=== PATIENT | female | born 1990 | race Caucasian/White ===

== ENCOUNTER 2017-05-20 06:35 | Inpatient (IN) | END 2017-05-22 15:45 | disposition home or self-care (01) | DRG 777 ==

== ENCOUNTER 2017-07-27 06:30 | Emergency (ER) | END 2017-07-27 08:05 | disposition home or self-care (01) ==

== ENCOUNTER 2017-12-28 20:56 | Emergency (ER) | END 2017-12-29 01:31 | disposition home or self-care (01) ==

== ENCOUNTER 2018-09-04 17:42 | Emergency (ER) | payer OTHER ==
[~2018-09-04] VITALS: Wt 84.8 kg
[~2018-09-04 17:42] MED LIST: ACET325T33 PO; CIPR500T4 PO; IBUP-1542 PO; IBUP800T48 PO; PREN1TAB49
[2018-09-04] MEDS ORDERED: ACETAMINOPHEN 325 MG TAB PO STA (19:45)
--- NOTE | 2018-09-04 20:11 | ERD ---
ER Documentation Chief Complaint Chief Complaint l. pelvic pain, hasn't had period in 1 mo HPI 27-year-old G2, P2 female with past medical history of PCOS, right-sided ectopic May 2017 requiring emergent surgical intervention who presents with 1 month complaint of worsening pelvic pain. Describes sharp pain localized to the left iliac region. LMP per patient was early June. Has taken several urine test which have all come back negative. She is sexually active with one partner, admits to not always using condoms for sexual intercourse. She otherwise denies vaginal bleeding, fevers, chills, nausea, vomiting, radiation of abdominal pain. ROS All systems reviewed and are negative except as per history of present illness. Medications Home Meds Active Scripts Acetaminophen* (Tylophen*) 500 Mg Capsule, 1 CAP PO Q6H PRN for PAIN AND OR ELEVATED TEMP, #20 CAP Prov:JESSE MALDONADO PA-C 09/04/18 Ibuprofen* (Motrin*) 600 Mg Tab, 600 MG PO Q6, #30 TAB Prov:CASI RUTLEDGE PA-C 12/29/17 Ciprofloxacin Hcl* (Ciprofloxacin Hcl*) 500 Mg Tablet, 500 MG PO BID for 7 Days, TAB Prov:CASI RUTLEDGE PA-C 12/29/17 Ibuprofen* (Motrin*) 600 Mg Tab, 600 MG PO Q6, #30 TAB Prov:OTTO LYONS PA-C 07/27/17 Acetaminophen* (Tylenol*) 325 Mg Tablet, 2 TAB PO Q6 PRN for PAIN AND OR ELEVATED TEMP, #20 TAB Prov:OTTO LYONS PA-C 07/27/17 Ibuprofen* (Motrin*) 800 Mg Tab, 800 MG PO Q6 PRN for PAIN LEVEL 4-7, #30 TAB Prov:MARYANA CM MD 05/22/17 Reported Medications Vits W-Ca,Fe,Fa(<1MG) () 1 Tab Tablet 11/19/09 Allergies Allergies: Coded Allergies: No Known Drug Allergy (Verified Allergy, Unknown, 09/04/18) PMhx/Soc History of Surgery: Yes (c-sectionsx2, ectopic ) Anesthesia Reaction: No Hx Neurological Disorder: No Hx Respiratory Disorders: No Hx Cardiac Disorders: No Hx Psychiatric Problems: No Hx Miscellaneous Medical Probl: No Hx Alcohol Use: Yes (occasionally) Hx Substance Use: No Hx Tobacco Use: Yes Smoking Status: Never smoker FmHx Family History: No diabetes, No coronary disease, No other Physical Exam Vitals Vital Signs Date Temp Pulse Resp B/P (MAP) Pulse Ox O2 O2 Flow FiO2 Time Delivery Rate 09/04/18 98.7 74 20 124/70 99 Room Air 22:05 (88) 09/04/18 98.9 92 20 127/70 98 17:51 (89) Physical Exam I have reviewed the triage vital signs. Const: Well nourished, well developed, appears stated age Eyes: PERRL, no conjunctival injection HENT: NCAT, Neck supple without meningismus CV: RRR, Warm, well-perfused extremities RESP: CTAB, Unlabored respiratory effort GI: soft,tender to palpation to L iliac, non-distended, no masses MSK: No gross deformities appreciated Skin: Warm, dry. No rashes Neuro: grossly non focal Psych: Appropriate mood and affect. Results 24 hrs Laboratory Tests Test 09/04/18 19:55 09/04/18 20:00 POC Beta HCG, Qualitative NEGATIVE Urine Color YELLOW Urine Clarity CLEAR Urine pH 8.0 Urine Specific [place] 1.021 Urine Ketones NEGATIVE mg/dL Urine Nitrite NEGATIVE mg/dL Urine Bilirubin NEGATIVE mg/dL Urine Urobilinogen NEGATIVE mg/dL Urine Leukocyte Esterase NEGATIVE Sami/ul Urine Hemoglobin NEGATIVE mg/dL Urine Glucose NEGATIVE mg/dL Urine Total Protein NEGATIVE mg/dl Current Medications Medications Dose Sig/Ksenia Start Time Status Last (Trade) Ordered Route PRN Stop Time Admin Dose Reason Admin 650 mg ONCE STAT 09/04/18 DC 09/04/18 Acetaminophen PO 19:45 19:59 (Tylenol 09/04/18 20:14 Tab) Ketorolac 30 mg ONCE STAT 09/04/18 DC 09/04/18 Tromethamine IM 20:13 20:19 (Toradol) 09/04/18 20:14 Procedures/MDM 27-year-old female with past medical history of PCOS and right-sided ectopic requiring surgical intervention who presents with left-sided pelvic pain. Given patients test is negative highly doubt ectopic . Considered causes of female-specific abdominal pain unrelated to (e.g., pelvic inflammatory disease with or without tubo-ovarian abscess, [id number], etc.). Also considered causes of abdominal pain that are not gender-specific (e.g., appendicitis, volvulus, small bowel obstruction, mesenteric adenitis, acute cholecystitis/choledocholithiasis and other biliary pathology, etc.). Patient well-appearing with normal vital signs. No reports of vaginal bleeding. Patient given strict return precautions for worsening pain, inability to eat/drink, fevers (temperature over 100.4F), or other concerns. Patient instructed to follow up with their primary doctor and is agreeable; all questions were answered. ED course: Transabdominal and transvaginal ultrasound without acute findings UA unremarkable Advised patient to follow-up with her [employer] physician as well as PMD for further evaluation of her symptoms Reassessment: Patient improved for pain Rx, appearing much more comfortable and reporting improvement in her pain DISPOSITION PLAN: We discussed follow up with the patient's primary care doctor within 24 to 48 hours. Patient counseled regarding my diagnostic impression and care plan. Prior to discharge all questions answered. Pt agrees with treatment plan and un derstands strict return precautions. Precautionary instructions provided including instructions to return to the ER if not improving or for any worsening or changing symptoms or concerns. Disclaimer: Inadvertent spelling and grammatical errors are likely due to EHR/dictation software use and do not reflect on the overall quality of patient care. Also, please note that the electronic time recorded on this note does not necessarily reflect the actual time of the patient encounter. Departure Diagnosis: Primary Impression: Acute pain in female pelvis Condition: Stable JESSE MALDONADO PA-C Sep 04, 2018 20:10
[2018-09-04] MEDS ORDERED: KETOROLAC 30 MG INJ IM STA (20:13)
[2018-09-04] MEDS ORDERED: ACET500C5 PO (22:00)
[2018-09-04 22:05] VITALS: BP 124/70; PULSE 74; RESP 20
== END 2018-09-04 22:05 | disposition home or self-care (01) ==
LOC: FTE 17:42
DX: R10.2 Pelvic and perineal pain (principal); Z87.891 Personal history of nicotine dependence
CPT/HCPCS: 76830; 76856; 81003; 81025; J1885; 96372

== ENCOUNTER 2019-01-22 14:39 | Emergency (ER) | payer SELFPAY ==
[~2019-01-22] VITALS: Ht 170.2 cm; Wt 94.7 kg
[~2019-01-22 14:39] MED LIST changes: +ACET500C5 PO; +IBUP-1561 PO; +PSEU-79 PO
[2019-01-22 14:57] VITALS: BP 110/74; PULSE 78; RESP 18; Ht 170.2 cm; Wt 94.7 kg
== END 2019-01-22 18:03 | disposition home or self-care (01) ==
LOC: FTE 14:39
DX: R10.2 Pelvic and perineal pain (principal); F17.210 Nicotine dependence, cigarettes, uncomplicated
CPT/HCPCS: 36415; 76801; 76817; 81003; 81025; 84702; 85025